=== PATIENT | female | born 1990 | race African-American/Black ===

== ENCOUNTER 2016-09-09 18:20 | Emergency (ER) | payer SELFPAY ==
[2016-09-09] MEDS ORDERED: IPRATROPIUM/ALBUTEROL 0.5-2.5 MG/3 ML AMPUL NEB ONE (19:23)
[2016-09-09] MEDS ORDERED: PREDNISONE 20 MG TABLET PO ONE (19:23)
--- NOTE | 2016-09-09 19:29 | ER Document Report ---
ED Medical Screen (RME) - General Chief Complaint: Cough Stated Complaint: NAUSEA/VOMITING/BODY ACHES Mode of Arrival: Ambulatory Information source: Patient Notes: 26 y/o F presents to ED c/o cough, congestion, and fever. States cough is productive and reports associated post-tussive emesis. I have greeted and performed a rapid initial assessment of this patient. A comprehensive ED assessment and evaluation of the patient, analysis of test results and completion of medical decision making process will be conducted by an additional ED providers. TRAVEL OUTSIDE OF THE [place] IN LAST 30 DAYS: No - Related Data Allergies/Adverse Reactions: hydroxychloroquine [From Plaquenil] Allergy (Verified 09/09/16 18:28) Past Medical History - Social History Chew tobacco use (# tins/day): No Frequency of alcohol use: None Drug Abuse: None - Past Medical History Cardiac Medical History: Denies: Hx Coronary Artery Disease, Hx Heart Attack, Hx Hypertension Pulmonary Medical History: Reports: Hx Asthma Denies: Hx Bronchitis, Hx COPD, Hx Pneumonia Neurological Medical History: Denies: Hx Cerebrovascular Accident, Hx Seizures Endocrine Medical History: Renal/ Medical History: Denies: Hx Peritoneal Dialysis Malignancy Medical History: GI Medical History: Musculoskeltal Medical History: Reports Hx Arthritis Psychiatric Medical History: Past Surgical History: Reports: Hx Tubal Ligation - Immunizations Immunizations up to date: Yes Hx Diphtheria, Pertussis, Tetanus Vaccination: Yes - 04/2015 Physical Exam - Vital signs Vitals: Temp Pulse Resp BP Pulse Ox 98.9 F 97 18 131/67 H 99 09/09/16 18:30 09/09/16 18:30 09/09/16 18:30 09/09/16 18:30 09/09/16 18:30 - General General appearance: Appears well, Alert In distress: None - Respiratory Respiratory status: No respiratory distress Breath sounds: Rhonchi - scaterred bilaterally, Wheezing - mild epiratory - Cardiovascular Rhythm: Regular Pulses: Normal: Radial Normal capillary refill: Yes Course - Vital Signs Vital signs: Temp Pulse Resp BP Pulse Ox 98.9 F 97 18 131/67 H 99 09/09/16 18:30 09/09/16 18:30 09/09/16 18:30 09/09/16 18:30 09/09/16 18:30
--- NOTE | 2016-09-09 23:28 | ER Document Report ---
ED General - General Mode of Arrival: Medic Information source: Patient TRAVEL OUTSIDE OF THE [place] IN LAST 30 DAYS: No - HPI Patient complains to provider of: Cough and Fever Onset: Other - 4 days ago Onset/Duration: Worse Associated symptoms: Other - see above <TRACY RUSS - Last Filed: 09/10/16 06:55> <ROQUE GAFFNEY - Last Filed: 09/10/16 07:42> - General Chief Complaint: Cough Stated Complaint: NAUSEA/VOMITING/BODY ACHES Notes: 26 year old female with history of Lupus presents to the ED with progressively worsening cough that has been present for the past 4 days. Patient states that she is not vomiting secondary to her coughing episodes, but is complaining of rhinorrhea, headache, fever, nausea, and diffuse abdominal pain. Patient denies throat pain. Patient states that she hasn't had anything to eat in the past 2 days. (TRACY RUSS) - Related Data Allergies/Adverse Reactions: hydroxychloroquine [From Plaquenil] Allergy (Verified 09/09/16 18:28) Past Medical History - General Information source: Patient Last Menstrual Period: now - Social History Smoking Status: Current Every Day Smoker Cigarette use (# per day): No Chew tobacco use (# tins/day): No Frequency of alcohol use: Rare Drug Abuse: None Family History: Reviewed & Not Pertinent Patient has suicidal ideation: No Patient has homicidal ideation: No - Past Medical History Cardiac Medical History: Denies: Hx Coronary Artery Disease, Hx Heart Attack, Hx Hypertension Pulmonary Medical History: Reports: Hx Asthma Denies: Hx Bronchitis, Hx COPD, Hx Pneumonia Neurological Medical History: Denies: Hx Cerebrovascular Accident, Hx Seizures Endocrine Medical History: Renal/ Medical History: Denies: Hx Peritoneal Dialysis Malignancy Medical History: GI Medical History: Musculoskeltal Medical History: Reports Hx Arthritis Psychiatric Medical History: Past Surgical History: Reports: Hx Tubal Ligation - Immunizations Immunizations up to date: Yes Hx Diphtheria, Pertussis, Tetanus Vaccination: Yes - 04/2015 Hx Pneumococcal Vaccination: 04/20/14 <TRACY RUSS - Last Filed: 09/10/16 06:55> <ROQUE GAFFNEY - Last Filed: 09/10/16 07:42> - Medical History Notes: Patient has a history of lupus (TRACY RUSS) Review of Systems - Review of Systems Constitutional: See HPI, Fever EENT: See HPI, Nose discharge. denies: Throat pain Cardiovascular: No symptoms reported Respiratory: No symptoms reported Gastrointestinal: See HPI, Abdominal pain - diffuse, Nausea Genitourinary: No symptoms reported Female Genitourinary: No symptoms reported Musculoskeletal: No symptoms reported Skin: No symptoms reported Hematologic/Lymphatic: No symptoms reported Neurological/Psychological: See HPI, Headaches -: Yes All other systems reviewed and negative <TRACY RUSS - Last Filed: 09/10/16 06:55> Physical Exam - General General appearance: Alert In distress: None - HEENT Head: Normocephalic, Atraumatic Eyes: Normal Extraocular movements intact: Yes Pupils: PERRL Nasal: Other - nasal congestion. No: Normal Mucous membranes: Dry - Respiratory Respiratory status: No respiratory distress Breath sounds: Normal - Cardiovascular Rhythm: Regular Heart sounds: Normal auscultation - Abdominal Inspection: Normal - Back Back: Normal - Extremities General upper extremity: Normal inspection, Normal ROM General lower extremity: Normal inspection, Normal ROM - Neurological Neuro grossly intact: Yes Cognition: Normal Orientation: AAOx4 Hollister Coma Scale Eye Opening: Spontaneous Bria Coma Scale Verbal: Oriented Hollister Coma Scale Motor: Obeys Commands Hollister Coma Scale Total: 15 Speech: Normal - Psychological Associated symptoms: Normal affect, Normal mood - Skin Skin Temperature: Warm Skin Moisture: Dry Skin Color: Normal <TRACY RUSS - Last Filed: 09/10/16 06:55> Course - Laboratory Result Diagrams: 09/09/16 23:43 09/09/16 23:43 <TRACY RUSS - Last Filed: 09/10/16 06:55> - Laboratory Result Diagrams: 09/09/16 23:43 09/09/16 23:43 - Diagnostic Test Radiology reviewed: Reports reviewed <ROQUE GAFFNEY - Last Filed: 09/10/16 07:42> - Re-evaluation Re-evalutation: 09/10/16 Patient with no evidence for bacterial infection. Taking by mouth. Feels better after fluids and medications. Stable for discharge home. Return if any worsening or concerning symptoms. No further abdominal pain at time of discharge. (ROQUE GAFFNEY) - Vital Signs Vital signs: Temp Pulse Resp BP Pulse Ox 97.9 F 64 16 124/69 100 09/10/16 06:12 09/10/16 06:12 09/10/16 06:12 09/10/16 06:12 09/10/16 06:12 (TRACY RUSS) (ROQUE GAFFNEY) - Laboratory Laboratory results interpreted by me: 09/09/16 09/09/16 09/10/16 23:43 23:43 02:50 WBC 12.0 H Hgb 15.9 H RDW 14.1 H Seg Neuts % (Manual) 98 H Lymphocytes % (Manual) 1 L Monocytes % (Manual) 1 L Abs Neuts (Manual) 11.8 H Abs Lymphs (Manual) 0.1 L Potassium 3.5 L Glucose 116 H Urine Protein 100 H Urine Ketones 80 H Urine Ascorbic Acid 40 H (ROQUE GAFFNEY) Discharge <TRACY RUSS - Last Filed: 09/10/16 06:55> <ROQUE GAFFNEY - Last Filed: 09/10/16 07:42> - Discharge Clinical Impression: Nausea & vomiting Qualifiers: Vomiting type: unspecified Vomiting Intractability: non-intractable Qualified Code(s): R11.2 - Nausea with vomiting, unspecified Upper respiratory infection Qualifiers: URI type: unspecified URI Qualified Code(s): J06.9 - Acute upper respiratory infection, unspecified Condition: Stable Disposition: HOME, SELF-CARE Instructions: Vomiting ([facility]), Upper Respiratory Illness ([facility]) Forms: Return to Work Referrals: DILMA CRUZ PA-C [Primary Care Provider] - Follow up as needed Scribe Attestation: 09/10/16 07:42 I personally performed the services described in the documentation, reviewed and edited the documentation which was dictated to the scribe in my presence, and it accurately records my words and actions. (ROQUE GAFFNEY) Scribe Documentation - Scribe Written by Scribe:: Sergey Gabriel, 09/10/2016 0034 acting as scribe for :: Cady <TRACY RUSS - Last Filed: 09/10/16 06:55>
[2016-09-09] MEDS ORDERED: NORMAL SALINE 1000 ML 1,000 ML IV ONE (23:29)
[2016-09-09] MEDS ORDERED: KETOROLAC TROMETHAMINE INJ/PF 30 MG/1 ML SDV IV ONE (23:30)
[2016-09-09] MEDS ORDERED: ONDANSETRON HCL INJ/PF 4 MG/2 ML SDV IV ONE (23:30)
[2016-09-10 00:19] LABS: ALANINE AMINOTRANSFERASE 20 U/L (9-52); ALBUMIN 4.8 g/dL (3.5-5.0); ALKALINE PHOSPHATASE 93 U/L (38-126); ANION GAP 15 (5-19); ASPARTATE AMINO TRANSFERASE 17 U/L (14-36); BILIRUBIN,TOTAL 0.8 mg/dL (0.2-1.3); BLOOD UREA NITROGEN 7 mg/dL (7-20); CARBON DIOXIDE 26 mmol/L (22-30); CHLORIDE 102 mmol/L (98-107); GLUCOSE 116 mg/dL (75-110); POTASSIUM 3.5 mmol/L (3.6-5.0); SODIUM 142.6 mmol/L (137-145); TOTAL PROTEIN 7.8 g/dL (6.3-8.2)
[2016-09-10 00:28] LABS: HEMOGLOBIN 15.9 g/dL (12.0-15.5); HGB HCT DIFFERENCE 0.7; MEAN CORPUSCULAR HEMOGLOBIN 30.9 pg (27.0-33.4); MEAN CORPUSCULAR HGB CONC 33.8 g/dL (32.0-36.0); MEAN CORPUSCULAR VOLUME 92 fl (80-97); RED BLOOD COUNT 5.13 10^6/uL (3.72-5.28); RED CELL DISTRIBUTION WIDTH 14.1 % (11.5-14.0)
[2016-09-10 00:31] LABS: BASOPHILS % (MANUAL) 0 % (0-2); EOSINOPHILS % (MANUAL) 0 % (0-6); LYMPHOCYTES % (MANUAL) 1 % (13-45); TOTAL CELLS COUNTED 100
[2016-09-10 00:32] LABS: TOXIC GRANULATION SLIGHT
[2016-09-10 00:33] LABS: ANISOCYTOSIS SLIGHT; SCHISTOCYTES SLIGHT
[2016-09-10 03:12] LABS: APPEARANCE,URINE SLIGHTLY-CLOUDY; BILIRUBIN,URINE NEGATIVE (NEGATIVE); GLUCOSE, URINE NEGATIVE (NEGATIVE); KETONES,URINE 80 mg/dL (NEGATIVE); LEUKOCYTE ESTERASE,URINE NEGATIVE (NEGATIVE); NITRITE,URINE NEGATIVE (NEGATIVE); PROTEIN,URINE 100 mg/dL (NEGATIVE); URINE SPECIFIC GRAVITY 1.028; UROBILINOGEN,URINE NEGATIVE mg/dL (<2.0)
[2016-09-10] MEDS ORDERED: RINGERS SOLUTION,LACTATED 1,000 ML IV ONE (04:00)
[2016-09-10] MEDS ORDERED: ONDANSETRON ODT 4 MG TAB (6 TAB/DSPK) PO PRN (05:45)
[2016-09-10 06:14] VITALS: BP 124/69
== END 2016-09-10 06:14 | disposition home or self-care (01) ==
LOC: ER 18:20
DX: J06.9 Acute upper respiratory infection, unspecified (principal); R11.2 Nausea with vomiting, unspecified; R05 Cough; R52 Pain, unspecified; R51 Headache; J34.89 Other specified disorders of nose and nasal sinuses; R10.9 Unspecified abdominal pain; F17.210 Nicotine dependence, cigarettes, uncomplicated
CPT/HCPCS: 94640; 99284; 96361; 96374; 96375; 36415; 83690; 84703; 85025; 80053; 81001; 87804; 71020; J1885; J7512; J2405; J7030; J7120; J7620

== ENCOUNTER 2016-12-10 11:22 | Emergency (ER) | payer SELFPAY ==
--- NOTE | 2016-12-10 13:11 | ER Document Report ---
HPI - HPI Patient complains to provider of: dental pain Onset: Other - 8 days Onset/Duration: Persistent Quality of pain: Achy Severity: Severe Pain Level: 5 Context: Patient presents to the emergency department with complaints of right upper dental pain for the past 8 days. Patient reports she has been taking some penicillin that she received from her dentist a few months ago. Patient reports she has also been taking her tramadol that she has for lupus but is not touching the pain. She denies fever vomiting diarrhea. Reports it hurts when she smokes. Patient reports she has a follow-up appointment with her dentist next Friday to have the tooth pulled. Associated Symptoms: None Exacerbated by: Other - smoking Relieved by: Denies Similar symptoms previously: Yes Recently seen / treated by doctor: No - REPRODUCTIVE LMP: 12/05/16 Reproductive: DENIES: : - DERM Skin Color: Normal Past Medical History - General Information source: Patient Last Menstrual Period: 12/05/16 - Social History Smoking Status: Current Every Day Smoker Cigarette use (# per day): Yes Frequency of alcohol use: None Drug Abuse: None Family History: Reviewed & Not Pertinent Patient has suicidal ideation: No Patient has homicidal ideation: No - Past Medical History Cardiac Medical History: Denies: Hx Coronary Artery Disease, Hx Heart Attack, Hx Hypertension Pulmonary Medical History: Reports: Hx Asthma Denies: Hx Bronchitis, Hx COPD, Hx Pneumonia Neurological Medical History: Denies: Hx Cerebrovascular Accident, Hx Seizures Endocrine Medical History: Renal/ Medical History: Denies: Hx Peritoneal Dialysis Malignancy Medical History: GI Medical History: Musculoskeltal Medical History: Reports Hx Arthritis Psychiatric Medical History: Past Surgical History: Reports: Hx Dilation and Curettage, Hx Tubal Ligation - Immunizations Immunizations up to date: Yes Hx Diphtheria, Pertussis, Tetanus Vaccination: Yes - 04/2015 Hx Pneumococcal Vaccination: 04/20/14 Vertical Provider Document - CONSTITUTIONAL Agree With Documented VS: Yes Exam Limitations: No Limitations General Appearance: WD/WN, No Apparent Distress - nontoxic looking - INFECTION CONTROL TRAVEL OUTSIDE OF THE [place] IN LAST 30 DAYS: No - HEENT HEENT: Atraumatic, Normocephalic. negative: Pharyngeal Erythema Mouth Diagram: 1 - Chipped tooth noted no erythema no swelling no discharge no pustule no induration no ludwigs, opens mouth wide - NECK Neck: Normal Inspection, Supple. negative: Lymphadenopathy-Left, Lymphadenopathy-Right - RESPIRATORY Respiratory: No Respiratory Distress O2 Sat by Pulse Oximetry: 97 - CARDIOVASCULAR Cardiovascular: Regular Rate - MUSCULOSKELETAL/EXTREMETIES Musculoskeletal/Extremeties: NAZ MARTÍNEZ - NEURO Level of Consciousness: Awake, Alert, Appropriate - DERM Integumentary: Warm, Dry Course - Re-evaluation Re-evalutation: 12/10/16 13:10 Patient was brought back to her room after almost a 2 hour wait because she was sleeping in waiting room and did not hear her name called. 12/10/16 13:47 Patient was given a Tessalon Perle p.o. I had intended for the Tessalon Perles to be given for her dental pain with a hole poked in it to bite down but patient was given it and swallowed. Will prescribe patient small amount of narcotic to help get her through until her appointment next week. Patient currently reports she has enough penicillin. - Vital Signs Vital signs: Temp Pulse Resp BP Pulse Ox 98.5 F 80 18 125/82 97 12/10/16 11:43 12/10/16 11:43 12/10/16 11:43 12/10/16 11:43 12/10/16 11:43 Discharge - Discharge Clinical Impression: Pain, dental Condition: Stable Disposition: HOME, SELF-CARE Instructions: Oral Narcotic Medication ([facility]), Toothache ([facility]) Additional Instructions: *You have been evaluated for dental pain *Take medications as prescribed *Follow up with your dentist as scheduled Friday *Return to ED for worsening condition, changes, needs Prescriptions: Hydrocodone/Acetaminophen [Hyrum 5-325 Tablet] 1 each PO BID #10 tablet Referrals: DAREK WELCH MD [Primary Care Provider] - Follow up in 3-5 days
[2016-12-10] MEDS ORDERED: BENZONATATE 100 MG CAPSULE PO ONE (13:16)
[2016-12-10 13:51] VITALS: BP 110/72
== END 2016-12-10 13:43 | disposition home or self-care (01) ==
LOC: ER 11:22
DX: K08.89 Other specified disorders of teeth and supporting structures (principal); F17.210 Nicotine dependence, cigarettes, uncomplicated; J45.909 Unspecified asthma, uncomplicated
CPT/HCPCS: 99282

== ENCOUNTER 2017-01-11 14:07 | Emergency (ER) | payer MEDICAID ==
--- NOTE | 2017-01-11 15:48 | ER Document Report ---
ED Oral Problem - General Chief Complaint: Toothache Stated Complaint: TOOTH PAIN Time Seen by Provider: 01/11/17 14:55 Mode of Arrival: Ambulatory Information source: Patient Notes: 6-year-old female presents to the emergency room with right upper dental pain TRAVEL OUTSIDE OF THE [place] IN LAST 30 DAYS: No - HPI Patient complains to provider of: Toothache Onset: Last week Onset: Gradual Quality of pain: Dull Severity: Moderate Pain Level: 2 Context: Recent antibiotic use Associated symptoms: denies: Decreased appetite, Earache, Fever Worsened by: Cold Similar symptoms previously: Yes Recently seen / treated by doctor/dentist: No - Related Data Allergies/Adverse Reactions: No Known Allergies Allergy (Verified 01/11/17 14:12) Past Medical History - General Information source: Patient - Social History Smoking Status: Current Every Day Smoker Cigarette use (# per day): No Chew tobacco use (# tins/day): No Frequency of alcohol use: Social Drug Abuse: None Lives with: Family Family History: Reviewed & Not Pertinent Patient has suicidal ideation: No Patient has homicidal ideation: No - Past Medical History Cardiac Medical History: Denies: Hx Coronary Artery Disease, Hx Heart Attack, Hx Hypertension Pulmonary Medical History: Reports: Hx Asthma Denies: Hx Bronchitis, Hx COPD, Hx Pneumonia Neurological Medical History: Denies: Hx Cerebrovascular Accident, Hx Seizures Endocrine Medical History: Renal/ Medical History: Denies: Hx Peritoneal Dialysis Malignancy Medical History: GI Medical History: Musculoskeltal Medical History: Reports Hx Arthritis Psychiatric Medical History: Past Surgical History: Reports: Hx Dilation and Curettage, Hx Gynecologic Surgery - d and c, Hx Tubal Ligation - Immunizations Immunizations up to date: Yes Hx Diphtheria, Pertussis, Tetanus Vaccination: Yes - 04/2015 Hx Pneumococcal Vaccination: 04/20/14 Review of Systems - Review of Systems Constitutional: denies: Chills, Fever EENT: See HPI Cardiovascular: No symptoms reported Respiratory: No symptoms reported Gastrointestinal: No symptoms reported Genitourinary: No symptoms reported Physical Exam - Vital signs Vitals: Temp Pulse Resp BP Pulse Ox 98.4 F 103 H 16 125/80 98 01/11/17 14:12 01/11/17 14:12 01/11/17 14:12 01/11/17 14:12 01/11/17 14:12 - HEENT Head: Normocephalic, Atraumatic Eyes: Normal Nasal: Normal Mouth/Lips: Normal Teeth diagram: 1 - Tenderness, dental caries Pharynx: Normal Neck: Normal. No: Anterior cervical chain, Posterior cervical chain Course - Vital Signs Vital signs: Temp Pulse Resp BP Pulse Ox 98.4 F 103 H 16 125/80 98 01/11/17 14:12 01/11/17 14:12 01/11/17 14:12 01/11/17 14:12 01/11/17 14:12 Discharge - Discharge Clinical Impression: Dental caries Condition: Stable Disposition: HOME, SELF-CARE Instructions: Oral Narcotic Medication ([facility]), Penicillin V K ([facility]), Toothache ( [facility]) Additional Instructions: The medicines as prescribed. Follow-up with a dentist: See the dental follow-up clinics. The list below includes dental clinics at reduced rate. Each of these clinics involve some travel. [address] [phone] [email or web address] [address] [phone] extension [address] [address] [facility]/[address] [place] [address] Note: The [facility] will have a free dental clinic as of January 18. Prescriptions: Oxycodone HCl/Acetaminophen [Percocet 5-325 mg Tablet] 1 tab PO ASDIR PRN #25 tab PRN Reason: Penicillin V Potassium [Penicillin Vk 500 mg Tablet] 500 mg PO QID #28 tablet Referrals: DILMA CRUZ PA-C [Primary Care Provider] - Follow up as needed [facility] [Provider Group] - Follow up as needed ([facility] will be opening up January 18)
[2017-01-11 16:36] VITALS: BP 122/78
== END 2017-01-11 16:30 | disposition home or self-care (01) ==
LOC: ER 14:07
DX: K02.9 Dental caries, unspecified (principal); K08.89 Other specified disorders of teeth and supporting structures; R63.0 Anorexia; H92.09 Otalgia, unspecified ear; R50.9 Fever, unspecified; F17.200 Nicotine dependence, unspecified, uncomplicated
CPT/HCPCS: 99282

== ENCOUNTER 2017-01-30 15:45 | Emergency (ER) | payer MEDICAID ==
[2017-01-30] MEDS ORDERED: ONDANSETRON 4 MG TAB.RAPDIS PO ONE (15:59)
[2017-01-30] MEDS ORDERED: PROMETHAZINE HCL 25 MG TABLET PO ONE (15:59)
--- NOTE | 2017-01-30 16:00 | ER Document Report ---
ED Medical Screen (RME) - General Chief Complaint: Abdominal Pain Stated Complaint: ABDOMINAL PAIN Time Seen by Provider: 01/30/17 15:59 Notes: Patient says that she is having severe pain in the epigastric region of the abdomen which started today while she was at work around noon. Pain is constant and severe. She has not had any diarrhea, but has been nauseated and did vomit once today just prior to arrival here. Patient says she has had similar pains to this when she is about ready to start her menstrual cycle. Her last cycle was January 09. She had her tubes tied. No other abdominal surgeries. Not on any regular prescription medications for any medical problems. TRAVEL OUTSIDE OF THE [place] IN LAST 30 DAYS: No - Related Data Allergies/Adverse Reactions: No Known Allergies Allergy (Verified 01/11/17 14:12) Past Medical History - Social History Chew tobacco use (# tins/day): No Frequency of alcohol use: None Drug Abuse: None - Past Medical History Cardiac Medical History: Denies: Hx Coronary Artery Disease, Hx Heart Attack, Hx Hypertension Pulmonary Medical History: Reports: Hx Asthma Denies: Hx Bronchitis, Hx COPD, Hx Pneumonia Neurological Medical History: Denies: Hx Cerebrovascular Accident, Hx Seizures Endocrine Medical History: Renal/ Medical History: Denies: Hx Peritoneal Dialysis Malignancy Medical History: GI Medical History: Musculoskeltal Medical History: Reports Hx Arthritis Psychiatric Medical History: Past Surgical History: Reports: Hx Dilation and Curettage, Hx Gynecologic Surgery - d and c, Hx Tubal Ligation - Immunizations Immunizations up to date: Yes Hx Diphtheria, Pertussis, Tetanus Vaccination: Yes - 04/2015 Physical Exam - Vital signs Vitals: Temp Pulse Resp BP Pulse Ox 97.8 F 79 20 133/78 H 100 01/30/17 15:50 01/30/17 15:50 01/30/17 15:50 01/30/17 15:50 01/30/17 15:50 Course - Vital Signs Vital signs: Temp Pulse Resp BP Pulse Ox 97.8 F 79 20 133/78 H 100 01/30/17 15:50 01/30/17 15:50 01/30/17 15:50 01/30/17 15:50 01/30/17 15:50
[2017-01-30 16:35] LABS: ABSOLUTE BASOPHILS # (AUTO) 0.1 10^3/uL (0.0-0.2); ABSOLUTE EOSINOPHILS # (AUTO) 0.2 10^3/uL (0.0-0.6); ABSOLUTE LYMPHOCYTES (AUTO) 2.4 10^3/uL (0.5-4.7); ABSOLUTE MONOCYTES (AUTO) 0.3 10^3/uL (0.1-1.4); ABSOLUTE NEUT (AUTO) 2.4 10^3/uL (1.7-8.2); BASOPHILS % (AUTO) 1.4 % (0-2); EOSINOPHILS % (AUTO) 2.9 % (0-6); HEMOGLOBIN 14.2 g/dL (12.0-15.5); HGB HCT DIFFERENCE -0.4; LYMPHOCYTES % (AUTO) 44.6 % (13-45); MEAN CORPUSCULAR HEMOGLOBIN 31.2 pg (27.0-33.4); MEAN CORPUSCULAR HGB CONC 33.1 g/dL (32.0-36.0); MEAN CORPUSCULAR VOLUME 94 fl (80-97); MONOCYTES % (AUTO) 6.4 % (3-13); RED BLOOD COUNT 4.56 10^6/uL (3.72-5.28); RED CELL DISTRIBUTION WIDTH 13.2 % (11.5-14.0); SEGMENTED NEUTROPHILS % (AUTO) 44.7 % (42-78); WHITE BLOOD COUNT 5.4 10^3/uL (4.0-10.5)
[2017-01-30 16:55] LABS: ALANINE AMINOTRANSFERASE 27 U/L (9-52); ALBUMIN 4.4 g/dL (3.5-5.0); ALKALINE PHOSPHATASE 77 U/L (38-126); ANION GAP 11 (5-19); ASPARTATE AMINO TRANSFERASE 17 U/L (14-36); BILIRUBIN,DIRECT 0.3 mg/dL (0.0-0.4); BILIRUBIN,TOTAL 0.4 mg/dL (0.2-1.3); BLOOD UREA NITROGEN 13 mg/dL (7-20); CALCIUM 9.5 mg/dL (8.4-10.2); CARBON DIOXIDE 28 mmol/L (22-30); CHLORIDE 104 mmol/L (98-107); CREATININE RESULT 0.61 mg/dL (0.52-1.25); GLUCOSE 84 mg/dL (75-110); LIPASE 218.8 U/L (23-300); POTASSIUM 3.6 mmol/L (3.6-5.0); SODIUM 142.8 mmol/L (137-145); TOTAL PROTEIN 7.6 g/dL (6.3-8.2)
--- NOTE | 2017-01-30 17:18 | ER Document Report ---
ED General - General Chief Complaint: Abdominal Pain Stated Complaint: ABDOMINAL PAIN Time Seen by Provider: 01/30/17 15:59 Mode of Arrival: Ambulatory Information source: Patient Notes: 26-year-old female presents with complaints of umbilical pain. Patient notes she has these episodes approximately 1 week prior to her menses starting, patient notes it is 1 week prior to her menses starting. Patient denies any fevers or chills admits to burping and passing gas TRAVEL OUTSIDE OF THE [place] IN LAST 30 DAYS: No - HPI Onset: Just prior to arrival Onset/Duration: Sudden Quality of pain: Cramping Severity: Mild Pain Level: 1 Associated symptoms: Other Exacerbated by: Denies Relieved by: Denies Similar symptoms previously: Yes Recently seen / treated by doctor: Yes - Related Data Allergies/Adverse Reactions: No Known Allergies Allergy (Verified 01/11/17 14:12) Past Medical History - Social History Smoking Status: Current Every Day Smoker Cigarette use (# per day): Yes Chew tobacco use (# tins/day): No Smoking Education Provided: No Frequency of alcohol use: None Drug Abuse: None Family History: Reviewed & Not Pertinent Patient has suicidal ideation: No Patient has homicidal ideation: No - Past Medical History Cardiac Medical History: Denies: Hx Coronary Artery Disease, Hx Heart Attack, Hx Hypertension Pulmonary Medical History: Reports: Hx Asthma Denies: Hx Bronchitis, Hx COPD, Hx Pneumonia Neurological Medical History: Denies: Hx Cerebrovascular Accident, Hx Seizures Endocrine Medical History: Renal/ Medical History: Denies: Hx Peritoneal Dialysis Malignancy Medical History: GI Medical History: Musculoskeltal Medical History: Reports Hx Arthritis Psychiatric Medical History: Past Surgical History: Reports: Hx Dilation and Curettage, Hx Gynecologic Surgery - d and c, Hx Tubal Ligation - Immunizations Immunizations up to date: Yes Hx Diphtheria, Pertussis, Tetanus Vaccination: Yes - 04/2015 Hx Pneumococcal Vaccination: 04/20/14 Review of Systems - Review of Systems Notes: REVIEW OF SYSTEMS: CONSTITUTIONAL : Denies fever, chills, or sweats. Denies recent illness. EENT: Denies eye, ear, throat, or mouth pain or symptoms. Denies nasal or sinus congestion or discharge. Denies throat, tongue, or mouth swelling or difficulty swallowing. CARDIOVASCULAR: Denies chest pain. Denies palpitations or racing or irregular heart beat. Denies ankle edema. RESPIRATORY: Denies cough, cold, or chest congestion. Denies shortness of breath, difficulty breathing, or wheezing. GASTROINTESTINAL: Admits to abdominal cramping GENITOURINARY: Denies difficulty urinating, painful urination, burning, frequency, blood in urine, or discharge. FEMALE GENITOURINARY: Denies vaginal bleeding, heavy or abnormal periods, irregular periods. Denies vaginal discharge or odor. MUSCULOSKELETAL: Denies back or neck pain or stiffness. Denies joint pain or swelling. SKIN: Denies rash, lesions or sores. HEMATOLOGIC : Denies easy bruising or bleeding. LYMPHATIC: Denies swollen, enlarged glands. NEUROLOGICAL: Denies confusion or altered mental status. Denies passing out or loss of consciousness. Denies dizziness or lightheadedness. Denies headache. Denies weakness or paralysis or loss of use of either side. Denies problems with gait or speech. Denies sensory loss, numbness, or tingling. Denies seizures. PSYCHIATRIC: Denies anxiety or stress. Denies depression, suicidal ideation, or homicidal ideation. ALL OTHER SYSTEMS REVIEWED AND NEGATIVE. PHYSICAL EXAMINATION: GENERAL: Well-appearing, well-nourished and in no acute distress. HEAD: Atraumatic, normocephalic. EYES: Pupils equal round and reactive to light, extraocular movements intact, conjunctiva are normal. ENT: Nares patent, oropharynx clear without exudates. Moist mucous membranes. NECK: Normal range of motion, supple without lymphadenopathy LUNGS: Breath sounds clear to auscultation bilaterally and equal. No wheezes rales or rhonchi. HEART: Regular rate and rhythm without murmurs ABDOMEN: Soft, nontender, nondistended abdomen. No guarding, no rebound. No masses appreciated. Female : deferred Musculoskeletal: Normal range of motion, no pitting or edema. No cyanosis. NEUROLOGICAL: Cranial nerves grossly intact. Normal speech, normal gait. Normal sensory, motor exams PSYCH: Normal mood, normal affect. SKIN: Warm, Dry, normal turgor, no rashes or lesions noted. Dictation was performed using [employer] recognition software Physical Exam - Vital signs Vitals: Temp Pulse Resp BP Pulse Ox 97.8 F 79 20 133/78 H 100 01/30/17 15:50 01/30/17 15:50 01/30/17 15:50 01/30/17 15:50 01/30/17 15:50 Course - Re-evaluation Re-evalutation: 01/30/17 19:40 Patient's physical examination labwork notes no significant abnormality, she overall looks quite well is in no distress, she was given some Bentyl and Motrin and notes her pain is completely resolved after passing gas. I will discharge at this time with understand that if symptoms do worsen if there is fevers or migration of the pain that she must return immediately After performing a Medical Screening Examination, I estimate there is LOW risk for ACUTE APPENDICITIS, BOWEL OBSTRUCTION, ACUTE CHOLECYSTITIS, PERFORATED DIVERTICULITIS, INCARCERATED HERNIA, PANCREATITIS, PELVIC INFLAMMATORY DISEASE, PERFORATED ULCER, ECTOPIC , or TUBO-OVARIAN ABSCESS, thus I consider the discharge disposition reasonable. Also, there is no evidence or peritonitis , sepsis, or toxicity. I have reevaluated this patient multiple times and no significant life threatening changes are noted. The patient and I have discussed the diagnosis and risks, and we agree with discharging home with close follow-up with the understanding that symptoms and presentations can change. We also discussed returning to the Emergency Department immediately if new or worsening symptoms occur. We have discussed the symptoms which are most concerning (e.g., bloody stool, fever, changing or worsening pain, vomiting) that necessitate immediate return. - Vital Signs Vital signs: Temp Pulse Resp BP Pulse Ox 97.8 F 64 16 112/70 100 01/30/17 17:42 01/30/17 17:42 01/30/17 17:42 01/30/17 17:42 01/30/17 17:42 - Laboratory Result Diagrams: 01/30/17 16:10 01/30/17 16:10 - Diagnostic Test Radiology reviewed: Image reviewed Discharge - Discharge Clinical Impression: Abdominal pain Qualifiers: Abdominal location: epigastric Qualified Code(s): R10.13 - Epigastric pain Condition: Stable Disposition: HOME, SELF-CARE Instructions: Abdominal Pain ([facility]) Additional Instructions: Follow up with your physician tomorrow for further care or return to the ED IMMEDIATELY if symptoms worsen or new concerns occur. If you cannot afford to follow up with your primary care physician a list of low cost clinics have been provided at the end of your discharge papers as well.
[2017-01-30] MEDS ORDERED: IBUPROFEN 600 MG TABLET PO ONE (17:20)
[2017-01-30] MEDS ORDERED: DICYCLOMINE HCL INJ 20 MG/2 ML AMPULE IM ONE (17:21)
[2017-01-30 17:48] VITALS: BP 112/70
== END 2017-01-30 17:42 | disposition home or self-care (01) ==
LOC: ER 15:45
DX: R10.13 Epigastric pain (principal); R10.33 Periumbilical pain; F17.210 Nicotine dependence, cigarettes, uncomplicated
CPT/HCPCS: 99284; 96372; 36415; 83690; 84703; 85025; 80053; J0500; S0119; J3490 ×2

== ENCOUNTER 2017-02-08 11:12 | Emergency (ER) | payer MEDICAID ==
[2017-02-08 11:17] VITALS: BP 124/80
--- NOTE | 2017-02-08 11:39 | ER Document Report ---
ED Oral Problem - General Chief Complaint: Toothache Stated Complaint: TOOTHACHE Time Seen by Provider: 02/08/17 11:30 Notes: 26 yo female c/o pain to right upper tooth. reports tooth broke last night causing increased pain. pt was seen 1 month ago in ED for same tooth pain, and the month prior for same tooth pain. pt reports she has a dental appointment this week. She state that she has been taking Tramadol without relief. TRAVEL OUTSIDE OF THE [place] IN LAST 30 DAYS: No - HPI Patient complains to provider of: Toothache Onset: Yesterday Quality of pain: Achy Context: Fractured tooth Associated symptoms: Headache Relieved by: Nothing Similar symptoms previously: Yes Recently seen / treated by doctor/dentist: Yes - ED - Related Data Allergies/Adverse Reactions: No Known Allergies Allergy (Verified 01/11/17 14:12) Past Medical History - General Information source: Patient - Social History Smoking Status: Current Every Day Smoker Frequency of alcohol use: None Drug Abuse: None Lives with: Family Family History: Reviewed & Not Pertinent - Past Medical History Cardiac Medical History: Denies: Hx Coronary Artery Disease, Hx Heart Attack, Hx Hypertension Pulmonary Medical History: Reports: Hx Asthma Denies: Hx Bronchitis, Hx COPD, Hx Pneumonia Neurological Medical History: Denies: Hx Cerebrovascular Accident, Hx Seizures Endocrine Medical History: Renal/ Medical History: Denies: Hx Peritoneal Dialysis Malignancy Medical History: GI Medical History: Musculoskeltal Medical History: Reports Hx Arthritis Psychiatric Medical History: Past Surgical History: Reports: Hx Dilation and Curettage, Hx Gynecologic Surgery - d and c, Hx Tubal Ligation - Immunizations Immunizations up to date: Yes Hx Diphtheria, Pertussis, Tetanus Vaccination: Yes - 04/2015 Hx Pneumococcal Vaccination: 04/20/14 Review of Systems - Review of Systems Constitutional: No symptoms reported EENT: See HPI Cardiovascular: No symptoms reported Respiratory: No symptoms reported Gastrointestinal: No symptoms reported Genitourinary: No symptoms reported Female Genitourinary: No symptoms reported Musculoskeletal: No symptoms reported Skin: No symptoms reported Hematologic/Lymphatic: No symptoms reported Neurological/Psychological: No symptoms reported Physical Exam - Vital signs Vitals: Temp Pulse Resp BP Pulse Ox 98.1 F 83 16 124/80 100 02/08/17 11:14 02/08/17 11:14 02/08/17 11:14 02/08/17 11:14 02/08/17 11:14 Interpretation: Normal - General General appearance: Appears well, Alert - HEENT Head: Normocephalic, Atraumatic Eyes: Normal Pupils: PERRL Tympanic membrane: Normal Teeth diagram: 1 - fractured tooth. + decay. no gingival abscess appreciated Pharynx: Normal Neck: Normal - Respiratory Respiratory status: No respiratory distress Chest status: Nontender Breath sounds: Normal Chest palpation: Normal - Cardiovascular Rhythm: Regular Heart sounds: Normal auscultation Murmur: No - Abdominal Inspection: Normal Distension: No distension Bowel sounds: Normal Tenderness: Nontender Organomegaly: No organomegaly - Back Back: Normal, Nontender - Extremities General upper extremity: Normal inspection, Nontender, Normal color, Normal ROM , Normal temperature General lower extremity: Normal inspection, Nontender, Normal color, Normal ROM , Normal temperature, Normal weight bearing. No: Jean's sign - Neurological Neuro grossly intact: Yes Cognition: Normal Orientation: AAOx4 [place] Coma Scale Eye Opening: Spontaneous [place] Coma Scale Verbal: Oriented [place] Coma Scale Motor: Obeys Commands [place] Coma Scale Total: 15 Speech: Normal Motor strength normal: LUE, RUE, LLE, RLE Sensory: Normal - Psychological Associated symptoms: Normal affect, Normal mood - Skin Skin Temperature: Warm Skin Moisture: Dry Skin Color: Normal Course - Vital Signs Vital signs: Temp Pulse Resp BP Pulse Ox 98.1 F 83 16 124/80 100 02/08/17 11:14 02/08/17 11:14 02/08/17 11:14 02/08/17 11:14 02/08/17 11:14 Discharge - Discharge Clinical Impression: Pain, dental Condition: Stable Disposition: HOME, SELF-CARE Instructions: Penicillin V K ([facility]), Toothache ([facility]), Ibuprofen (General) ([facility]) , Ultram ([facility]), Tessalon Perles ([facility]) Additional Instructions: Take medications as prescribed You may awad the Tessalon Perle and squeeze the liquid on painful tooth Follow up with dental as schedule Prescriptions: Benzonatate [Tessalon Perles 100 mg Capsule] 200 mg PO Q8HP PRN #40 capsule PRN Reason: Ibuprofen [Motrin 800 Mg Tablet] 800 mg PO Q6H #20 tablet Tramadol HCl [Ultram 50 mg Tablet] 50 mg PO Q6 #20 tablet
[2017-02-08] MEDS ORDERED: BENZONATATE 100 MG CAPSULE PO ONE (11:47)
== END 2017-02-08 11:59 | disposition home or self-care (01) ==
LOC: ER 11:12
DX: K02.9 Dental caries, unspecified (principal); K08.89 Other specified disorders of teeth and supporting structures; R51 Headache; F17.200 Nicotine dependence, unspecified, uncomplicated; J45.909 Unspecified asthma, uncomplicated
CPT/HCPCS: 99282; J3490

== ENCOUNTER 2017-02-27 15:43 | Emergency (ER) | payer MEDICAID ==
[2017-02-27] MEDS ORDERED: IBUPROFEN 600 MG TABLET PO ONE (16:47)
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
[2017-02-27] MEDS ORDERED: HYDROCODONE/ACETAMINOPHEN 5-325 MG 6 TAB/DSPK PO PRN (18:33)
[2017-02-27 18:51] VITALS: BP 123/63
== END 2017-02-27 18:52 | disposition home or self-care (01) ==
LOC: ER 15:43
DX: S40.011A Contusion of right shoulder, initial encounter (principal); S20.20XA Contusion of thorax, unspecified, initial encounter; Y04.8XXA Assault by other bodily force, initial encounter; Y04.2XXA Assault by strike against or bumped into by another person, initial encounter; F17.200 Nicotine dependence, unspecified, uncomplicated; J45.909 Unspecified asthma, uncomplicated; M54.89 Other dorsalgia
CPT/HCPCS: 99284; 71111; J3490

== ENCOUNTER 2017-04-03 21:05 | Emergency (ER) | payer MEDICAID ==
[2017-04-04] MEDS ORDERED: ALBUTEROL SULFATE 0.083% NEB 2.5 MG/3 ML AMPUL NEB ONE (01:16)
[2017-04-04] MEDS ORDERED: PREDNISONE 20 MG TABLET PO ONE (01:17)
--- NOTE | 2017-04-04 01:20 | ER Document Report ---
ED General - General Chief Complaint: Cough Stated Complaint: CHEST PAIN AND COUGH Time Seen by Provider: 04/04/17 01:12 Notes: Patient is a 26-year-old female presents with complaint of fever, cough, body aches. Patient says the symptoms have been ongoing for approximately a week. She is a smoker. She does smoke every day. She says that she has been have all coughing. She is initially was productive of sputum but now she feels as if she cannot get sputum out. She says that she has had a fever of 101 at home. She has had some headache. She denies any vomiting. No diarrhea. No other complaints at this time. TRAVEL OUTSIDE OF THE [place] IN LAST 30 DAYS: No - Related Data Allergies/Adverse Reactions: No Known Allergies Allergy (Verified 02/27/17 15:53) Past Medical History - Social History Smoking Status: Current Every Day Smoker Frequency of alcohol use: None Drug Abuse: None Family History: Reviewed & Not Pertinent Patient has suicidal ideation: No Patient has homicidal ideation: No - Past Medical History Cardiac Medical History: Denies: Hx Heart Attack, Hx Hypertension Pulmonary Medical History: Reports: Hx Asthma Denies: Hx Bronchitis, Hx COPD, Hx Pneumonia Neurological Medical History: Denies: Hx Seizures Endocrine Medical History: Renal/ Medical History: Reports: Hx Ovarian Cysts. Denies: Hx Peritoneal Dialysis Malignancy Medical History: GI Medical History: Reports: Hx Ulcerative Colitis Musculoskeltal Medical History: Reports Hx Arthritis Psychiatric Medical History: Past Surgical History: Reports: Hx Dilation and Curettage, Hx Gynecologic Surgery - d and c, Hx Tubal Ligation - Immunizations Immunizations up to date: Yes Hx Diphtheria, Pertussis, Tetanus Vaccination: Yes - 04/2015 Hx Pneumococcal Vaccination: 04/20/14 Review of Systems - Review of Systems Notes: My Normal Review Basic REVIEW OF SYSTEMS: CONSTITUTIONAL : Fever EENT: Denies eye, ear, throat, or mouth pain or symptoms. Denies nasal or sinus congestion. CARDIOVASCULAR: Denies chest pain. RESPIRATORY: Recurrent cough. Wheezing GASTROINTESTINAL: Denies abdominal pain. Denies nausea, vomiting, or diarrhea. Denies constipation. Last BM: MUSCULOSKELETAL: Denies neck or back pain or joint pain or swelling. SKIN: Denies rash or skin lesions. NEUROLOGICAL: Denies altered mental status or loss of consciousness. Intermittent headache. Denies weakness or paralysis or loss of use of either side. Denies problems with gait or speech. Denies sensory or motor loss. ALL OTHER SYSTEMS REVIEWED AND NEGATIVE. Physical Exam - Vital signs Vitals: Temp Pulse Resp BP Pulse Ox 99.2 F 99 16 107/63 95 04/03/17 21:09 04/03/17 21:09 04/03/17 21:09 04/03/17 21:09 04/03/17 21:09 - Notes Notes: General Appearance: Well nourished, alert, cooperative, no acute distress, mild obvious discomfort. Vitals: reviewed, See vital signs table. Head: no swelling or tenderness to the head Eyes: PERRL, EOMI, Conjuctiva clear Mouth: No decreasd moisture Throat: No tonsillar inflammation, No airway obstruction, No lymphadenopathy Neck: Supple, no neck tenderness, Lungs: Scattered wheezing, No rales, scattered rhonci, No accessory muscle use, good air exchange bilaterally. Heart: Normal rate, Regular rythm, No murmur, no rub Abdomen: Normal BS, soft, No rigidity, No abdominal tenderness, No guarding, no rebound, no abdominal masses, no organomegaly Extremities: strength 5/5 in all extremities, good pulses in all extremities, no swelling or tenderness in the extremities, no edema. Skin: warm, dry, appropriate color, no rash Neuro: speech clear, oriented x 3, normal affect, responds appropriately to questions. Course - Re-evaluation Re-evalutation: 04/04/17 06:33 Patient will be discharged home on prednisone and albuterol inhaler. Chest x- ray is negative for pneumonia. Suspect that she has a bronchitis. I talked her length about the importance of her quitting smoking and informed her that if she continues to smoke that her symptoms do not improve. I informed her that if she continues to feel like she is worsening or has recurrent fevers that she should return to the ER for reevaluation. Patient agrees with plan and will be discharged home. Dictation of this chart was performed using voice recognition software; therefore, there may be some unintended grammatical errors. - Vital Signs Vital signs: Temp Pulse Resp BP Pulse Ox 98.6 F 87 17 116/74 94 04/04/17 04:17 04/04/17 04:17 04/04/17 04:17 04/04/17 04:04/04/17 04:17 Discharge - Discharge Clinical Impression: Bronchitis Condition: Good Disposition: HOME, SELF-CARE Additional Instructions: BRONCHITIS: You have acute bronchitis. This disease is an infection or inflammation of the air passageways in your lungs. Symptoms usually include cough, low grade fever, shortness of breath, and wheezing. The cough usually persists for a couple of weeks. Most cases of bronchitis get better without antibiotics. We prescribe antibiotics when we believe bacteria are damaging your airways, or if there's high risk the bronchitis will worsen into pneumonia. Increase your fluid intake. A cool mist humidifier may make your lungs more comfortable. An expectorant (cough medicine that loosens phlegm) can help. If you smoke, STOP!!! Recovery from bronchitis can be somewhat slow, but you should see improvement within a day or two. Repeated episodes of bronchitis may result in lung damage -- for example, chronic bronchitis, recurrent pneumonias, or emphysema. Call the doctor if you develop increasing fever, shortness of breath, chest pain, bloody sputum, or otherwise worsen. If you have not improved at all after several days, contact the physician. BRONCHITIS WITH BRONCHOSPASM (WHEEZING): You have bronchitis with bronchospasm (wheezing). Sometimes people develop wheezing with a chest cold. This occurs either because of an underlying tendency toward asthma or because the virus itself irritates the bronchial tubes. This irritation causes cough, shortness of breath, and wheezing. Emergency treatment of bronchospasm may include adrenaline shots or bronchodilator aerosol. You may feel lightheaded and have a rapid pulse for an hour or two. Rest and get plenty of fluids. At home, we'll treat you with a bronchodilator inhaler. Corticosteroids may be required for some patients. Until you recover, avoid chemical fumes, dusts, pollens, and exercising in very cold or dry air. If you smoke, stop now! Most cases of bronchitis get better without antibiotics. We prescribe antibiotics when we believe bacteria are damaging your airways, or if there's high risk the bronchitis will worsen into pneumonia. Increase your fluid intake. A cool mist humidifier may make your lungs more comfortable. An expectorant (cough medicine that loosens phlegm) can help. Repeated episodes of bronchitis and bronchospasm may result in lung damage -- for example, chronic bronchitis, recurrent pneumonias, or emphysema. If you develop a fever, increased wheezing, chest pain, or severe shortness of breath, you should contact the doctor immediately. INHALED BRONCHODILATORS: You have received a treatment of and/or prescription for an inhaled bronchodilator -- a medication which stimulates the airways in the lung to dilate. This improves the flow of air in asthma, bronchitis, and emphysema. These medicines have some similarity to adrenaline, and can cause similar side effects: shakiness, racing heart, and a sense of nervousness. These side effects decrease with time. Contact your doctor if these side effects are severe. Do not over-use the medicine. Too-frequent use of the inhaler may make it ineffective. Call your doctor if the inhaler is not controlling your symptoms at the prescribed doses. STEROID MEDICATION: You have been given an or oral medicine of the cortisone/steroid class. This medication is used to control inflammation or allergy. Kei t is usually only given for a short period of time, until the acute process subsides. There are usually no side effects from short-term use of cortisone-like medications. Some persons feel an increased sense of well-being and are not sleepy at bedtime. Long-term use of cortisone medications is best avoided, unless required for a severe condition. If your condition does not remit, or relapses after the course of corticosteroid medication, you should consult your physician. SMOKING: If you smoke, you should stop smoking. The tar and chemicals in cigarette smoke are harmful. Smoking has been shown to cause: emphysema chronic bronchitis lung cancer mouth and throat cancer stomach and pancreas cancer premature aging defects In addition, smoking increases ear and lung infections in children of smokers. FOLLOW-UP CARE: If you have been referred to a physician for follow-up care, call the physician s office for an appointment as you were instructed or within the next two days. If you experience worsening or a significant change in your symptoms, notify the physician immediately or return to the Emergency Department at any time for re-evaluation. Please return to the ER if you have worsening of your symptoms, recurrent fevers not responding to Tylenol, difficulty breathing, or feel that you are not improving after 3 days of treatment. please use the inhaler as 2 puffs every 4 hours for cough and wheezing. Prescriptions: Prednisone [Deltasone 20 mg Tablet] 3 tab PO DAILY 5 Days tablet
--- NOTE | 2017-04-04 03:05 | RADIOLOGY REPORT (SQ) ---
EXAM DESCRIPTION: CHEST PA/LAT COMPLETED DATE/TIME: 04/04/2017 2:53 am REASON FOR STUDY: cough, fever COMPARISON: 09/09/2016. EXAM PARAMETERS: NUMBER OF VIEWS: two views TECHNIQUE: Digital Frontal and Lateral radiographic views of the chest acquired. RADIATION DOSE: NA LIMITATIONS: none FINDINGS: LUNGS AND PLEURA: No opacities, masses or pneumothorax. No pleural effusion. MEDIASTINUM AND HILAR STRUCTURES: No masses or contour abnormalities. HEART AND VASCULAR STRUCTURES: Heart normal size. No evidence for failure. BONES: No acute findings. HARDWARE: None in the chest. OTHER: No other significant finding. IMPRESSION: NO SIGNIFICANT RADIOGRAPHIC FINDING IN THE CHEST. TECHNICAL DOCUMENTATION: JOB ID: [id number] [employer]- All Rights Reserved
[2017-04-04] MEDS ORDERED: ALBUTEROL SULFATE HFA (90 MCG/PUFF) 8 GM MDI (1 MDI/ER DISP) IH PRN (03:55)
[2017-04-04] MEDS ORDERED: ACETAMINOPHEN 325 MG TABLET PO ONE (03:55)
[2017-04-04 04:18] VITALS: BP 116/74
== END 2017-04-04 04:18 | disposition home or self-care (01) ==
LOC: ER 21:05
DX: J40 Bronchitis, not specified as acute or chronic (principal); R07.9 Chest pain, unspecified; M79.1 Myalgia; R50.9 Fever, unspecified; F17.200 Nicotine dependence, unspecified, uncomplicated
CPT/HCPCS: 94640; 99283; 71020; J3490 ×2; J7512

== ENCOUNTER 2017-05-31 03:54 | Emergency (ER) | payer MEDICAID ==
[2017-05-31] MEDS ORDERED: LIDOCAINE 2% INJ (20 MG/ML) 20 ML MDV INJ ONE (04:38)
[2017-05-31] MEDS ORDERED: CLINDAMYCIN HCL 150 MG CAPSULE PO ONE (04:38)
--- NOTE | 2017-05-31 04:47 | ER Document Report ---
ED General - General Chief Complaint: Other Stated Complaint: FINGER PAIN,TOOTHACHE Time Seen by Provider: 05/31/17 04:32 Notes: Patient is a 27-year-old female presents with complaint of tooth pain. She has pain over her right upper molar and premolar. She has had intermittent tooth pain for a long time. She has not recently seen a dentist. Her second complaint is of pain over her thumb. She says she is swelling over the lateral aspect of the nail recently. She looked it up and says that it appears to be paronychia based on when she looked up online. She denies any injuries to the thumb. No other complaints at this time. TRAVEL OUTSIDE OF THE [place] IN LAST 30 DAYS: No - Related Data Allergies/Adverse Reactions: hydroxychloroquine [From Plaquenil] Allergy (Verified 05/31/17 03:57) tramadol [From Ultram] Allergy (Verified 05/31/17 03:57) Past Medical History - Social History Smoking Status: Never Smoker Frequency of alcohol use: None Drug Abuse: None Family History: Reviewed & Not Pertinent Patient has suicidal ideation: No Patient has homicidal ideation: No - Past Medical History Cardiac Medical History: Denies: Hx Heart Attack, Hx Hypertension Pulmonary Medical History: Reports: Hx Asthma Denies: Hx Bronchitis, Hx COPD, Hx Pneumonia Neurological Medical History: Denies: Hx Seizures Endocrine Medical History: Renal/ Medical History: Reports: Hx Ovarian Cysts. Denies: Hx Peritoneal Dialysis Malignancy Medical History: GI Medical History: Reports: Hx Ulcerative Colitis Musculoskeltal Medical History: Reports Hx Arthritis Psychiatric Medical History: Past Surgical History: Reports: Hx Dilation and Curettage, Hx Gynecologic Surgery - d and c, Hx Tubal Ligation - Immunizations Immunizations up to date: Yes Hx Diphtheria, Pertussis, Tetanus Vaccination: Yes - 04/2015 Hx Pneumococcal Vaccination: 04/20/14 Review of Systems - Review of Systems Notes: My Normal Review Basic REVIEW OF SYSTEMS: CONSTITUTIONAL : Denies fever, chills, or sweats. Denies recent illness. EENT: Dental pain. RESPIRATORY: Denies cough, cold, or chest congestion. Denies shortness of breath, difficulty breathing, or wheezing. MUSCULOSKELETAL: Left thumb pain. SKIN: Denies rash or skin lesions. ALL OTHER SYSTEMS REVIEWED AND NEGATIVE. Physical Exam - Vital signs Vitals: Temp Pulse Resp BP Pulse Ox 97.5 F 92 14 117/63 100 05/31/17 04:00 05/31/17 04:00 05/31/17 04:00 05/31/17 04:00 05/31/17 04:00 - Notes Notes: General Appearance: Well nourished, alert, cooperative, no acute distress, mild obvious discomfort. Vitals: reviewed, See vital signs table. Eyes: PERRL, EOMI, Conjuctiva clear Mouth: Patient has multiple mild dental caries. No obvious gingival inflammation. Throat: No tonsillar inflammation, No airway obstruction, No lymphadenopathy Extremities: strength 5/5 in all extremities, good pulses in all extremities, patient has perionychial inflammation to the left thumb. No swelling or pain to the pad of the thumb., no edema. Skin: warm, dry, appropriate color, no rash Neuro: speech clear, oriented x 3, normal affect, responds appropriately to questions. Course - Re-evaluation Re-evalutation: 05/31/17 05:28 I performed incision and drainage of the paronychia of the patient's thumb. She tolerated procedure well. We were able to express some drainage from the thumb. Remainder thumb is normal-appearing. Patient does have some pain over her right upper molar and premolar. I do not see significant interval formation. She is appointment with her dentist on Friday. I strongly encouraged her return to ER immediately if she has fevers, vomiting, redness or swelling spreading down the thumb, facial swelling, or she feels unwell. Patient agrees with plan will be discharged home. Dictation of this chart was performed using voice recognition software; therefore, there may be some unintended grammatical errors. - Vital Signs Vital signs: Temp Pulse Resp BP Pulse Ox 97.5 F 92 14 117/63 100 05/31/17 04:00 05/31/17 04:00 05/31/17 04:00 05/31/17 04:00 05/31/17 04:00 Discharge - Discharge Clinical Impression: Pain, dental, Paronychia Condition: Good Disposition: HOME, SELF-CARE Instructions: Oral Narcotic Medication ([facility]) Additional Instructions: Please take the antibiotics as prescribed. Please dno not take the [place] when driving, at work, or operating machinery as it will make you sleepy and sometimes can make people confused. Please return to the ER immediately if you develop redness or swelling of the left thumb, fevers, facial swelling, or if you feel unwell. please follow up with your dentist on Friday as scheduled. Prescriptions: Clindamycin HCl 300 mg PO ASDIR #56 capsule
[2017-05-31] MEDS ORDERED: HYDROCODONE/ACETAMINOPHEN 5-325 MG 6 TAB/DSPK PO PRN (05:24)
[2017-05-31 06:05] VITALS: BP 109/64
== END 2017-05-31 05:51 | disposition home or self-care (01) ==
LOC: ER 03:54
DX: L03.012 Cellulitis of left finger (principal); K02.9 Dental caries, unspecified; K08.89 Other specified disorders of teeth and supporting structures; M79.645 Pain in left finger(s); J45.909 Unspecified asthma, uncomplicated; Z88.8 Allergy status to other drugs, medicaments and biological substances; Z88.5 Allergy status to narcotic agent
CPT/HCPCS: 99283; 10060; J3490 ×2

== ENCOUNTER 2017-06-02 10:47 | Emergency (ER) | payer MEDICAID ==
[2017-06-02 11:00] VITALS: BP 111/63
--- NOTE | 2017-06-02 11:25 | RADIOLOGY REPORT (SQ) ---
EXAM DESCRIPTION: HAND LEFT 3 VIEWS COMPLETED DATE/TIME: 06/02/2017 11:13 am REASON FOR STUDY: left thumb pain COMPARISON: None. EXAM PARAMETERS: NUMBER OF VIEWS: Three views. TECHNIQUE: AP, lateral and oblique radiographic images acquired of the left hand. LIMITATIONS: None. FINDINGS: MINERALIZATION: Normal. BONES: No acute fracture or dislocation. No worrisome bone lesions. JOINTS: No effusions. SOFT TISSUES: No soft tissue swelling. No foreign body. OTHER: No other significant finding. IMPRESSION: NEGATIVE STUDY OF THE LEFT HAND. NO RADIOGRAPHIC EVIDENCE OF ACUTE INJURY. TECHNICAL DOCUMENTATION: JOB ID: [id number] [employer]- All Rights Reserved
--- NOTE | 2017-06-02 11:45 | ER Document Report ---
HPI - HPI Pain Level: 5 Notes: Patient is a 19-year-old female presents ED complaining of recurrence of an abscess to the left thumb status post drainage 2 days ago while in the ED and placed on clindamycin. Patient states that she was diagnosed the paronychia and had an abscess drained. Patient states that she has had increased swelling and another abscess formation to the same area that was drained previously. She has not noticed any red streaks, or purulent discharge. No other concerns or complaints. Denies any headache, fever, URI, sore throat, chest pain, palpitations, syncope, cough, shortness of breath, wheeze, dyspnea, abdominal pain, nausea/vomiting/diarrhea. Denies MRSA hx. - ROS Notes: REVIEW OF SYSTEMS: CONSTITUTIONAL : Denies fever, chills, or sweats. Denies recent illness. EENT: Denies eye, ear, throat, or mouth pain or symptoms. Denies nasal or sinus congestion or discharge. Denies throat, tongue, or mouth swelling or difficulty swallowing. CARDIOVASCULAR: Denies chest pain. Denies palpitations or racing or irregular heart beat. Denies ankle edema. RESPIRATORY: Denies cough, cold, or chest congestion. Denies shortness of breath, difficulty breathing, or wheezing. GASTROINTESTINAL: Denies abdominal pain or distention. Denies nausea, vomiting , or diarrhea. Denies blood in vomitus, stools, or per rectum. Denies black, tarry stools. Denies constipation. GENITOURINARY: Denies difficulty urinating, painful urination, burning, frequency, blood in urine, or discharge. MUSCULOSKELETAL: see hpi SKIN: see hpi NEUROLOGICAL: Denies confusion or altered mental status. Denies passing out or loss of consciousness. Denies dizziness or lightheadedness. Denies headache. Denies weakness or paralysis or loss of use of either side. Denies problems with gait or speech. Denies sensory loss, numbness, or tingling. ALL OTHER SYSTEMS REVIEWED AND NEGATIVE. Dictation was performed using [employer] voice recognition software - REPRODUCTIVE LMP: 05/28/17 Reproductive: DENIES: : - DERM Skin Color: Normal Past Medical History - Social History Smoking Status: Unknown if Ever Smoked Family History: Reviewed & Not Pertinent Patient has suicidal ideation: No Patient has homicidal ideation: No - Past Medical History Cardiac Medical History: Denies: Hx Heart Attack, Hx Hypertension Pulmonary Medical History: Reports: Hx Asthma Denies: Hx Bronchitis, Hx COPD, Hx Pneumonia Neurological Medical History: Denies: Hx Seizures Endocrine Medical History: Renal/ Medical History: Reports: Hx Ovarian Cysts. Denies: Hx Peritoneal Dialysis Malignancy Medical History: GI Medical History: Reports: Hx Ulcerative Colitis Musculoskeltal Medical History: Reports Hx Arthritis Psychiatric Medical History: Past Surgical History: Reports: Hx Dilation and Curettage, Hx Gynecologic Surgery - d and c, Hx Tubal Ligation - Immunizations Immunizations up to date: Yes Hx Diphtheria, Pertussis, Tetanus Vaccination: Yes - 04/2015 Hx Pneumococcal Vaccination: 04/20/14 Vertical Provider Document - CONSTITUTIONAL Agree With Documented VS: Yes Notes: PHYSICAL EXAMINATION: GENERAL: Well-appearing, well-nourished and in no acute distress. LUNGS: Breath sounds clear to auscultation bilaterally and equal. No wheezes rales or rhonchi. HEART: Regular rate and rhythm without murmurs, rubs, gallops. Musculoskeletal: Lt thumb: FROM to passive/active. Strength 5+/5. Extremities: No cyanosis, clubbing, or edema b/l. Peripheral pulses 2+. Capillary refill less than 3 seconds. NEUROLOGICAL: Cranial nerves grossly intact. Normal speech, normal gait. Normal sensory, motor exams PSYCH: Normal mood, normal affect. SKIN: paronychia left thumb. no streaks, discharge. + abscess and tenderness. No felon. - INFECTION CONTROL TRAVEL OUTSIDE OF THE [place] IN LAST 30 DAYS: No - RESPIRATORY O2 Sat by Pulse Oximetry: 99 Course - Re-evaluation Re-evalutation: 06/02/17 11:42 Patient is an afebrile, well-hydrated, 19-year-old female who presents to the ED with a return of her paronychia to left thumb. Vitals are stable. PE is otherwise unremarkable for any neurovascular compromise, obvious tendon/ ligament rupture, obvious fracture or dislocation, or felon. XR unremarkable for acute pathology. Patient is aware that condition can change and she needs to monitor symptoms for any acute changes and seek medical attention if so. Incision and drainage was performed today successfully without any complications. Wound culture was obtained. Patient to continue clindamycin as directed. Conservative measures for symptoms otherwise. Recheck with your PCM in 3-5 days. Return to the ED with any worsening/concerning symptoms otherwise as reviewed in discharge. Patient is in agreement. - Vital Signs Vital signs: Temp Pulse Resp BP Pulse Ox 97.4 F 88 16 111/63 99 06/02/17 10:58 06/02/17 10:58 06/02/17 10:58 06/02/17 10:58 06/02/17 10:58 Procedures - Incision and Drainage Left Thumb Time completed: 11:40 Type: Simple Blade size: 11 I&D procedure: Sterile dressing applied, Other - iodine, etoh pads Incision Method: Incision made by scalpel Amount/type of drainage: 1cc purulent Notes: 06/02/17 11:44 pt tolerated procedure well, no complications Discharge - Discharge Clinical Impression: Paronychia Condition: Stable Disposition: HOME, SELF-CARE Instructions: Paronychia ([facility]), Clindamycin ([facility]) Additional Instructions: Keep the hands clean Wash with soap and water Epson salt soaks may help Use bacitracin as directed Monitor for any worsening symptoms or signs of infection Recheck with your PCM in 3-5 days Return to the ED with any worsening symptoms and/or development of fever, headache, chest pain, palpitations, syncope, shortness of breath, trouble breathing, abdominal pain, n/v/d, muscle weakness/paralysis, numbness/tingling, abscess, red streaks, or other worsening symptoms that are concerning to you. Referrals: [facility] [Provider Group] - Follow up as needed [facility] [Provider Group] - Follow up as needed
[2017-06-02] MEDS ORDERED: HYDROCODONE/ACETAMINOPHEN 5-325 MG TABLET PO ONE (11:47)
== END 2017-06-02 12:01 | disposition home or self-care (01) ==
LOC: ER 10:47
PROC: 0H9GXZZ Drainage of Left Hand Skin, External Approach (ICD-10-PCS; principal; 2017-06-02)
DX: L03.012 Cellulitis of left finger (principal); Z98.51 Tubal ligation status
CPT/HCPCS: 87070; 87075; 87077; 87205; 99283

== ENCOUNTER 2017-07-08 15:52 | Emergency (ER) | payer MEDICAID ==
[2017-07-08] MEDS ORDERED: DEXAMETHASONE SOD PHOS INJ 10 MG/1 ML VIAL IM ONE (16:31)
--- NOTE | 2017-07-08 16:38 | ER Document Report ---
ED General - General Chief Complaint: Sore Throat Stated Complaint: SORE THROAT, HEADACHE, EAR PAIN Time Seen by Provider: 07/08/17 16:22 Mode of Arrival: Ambulatory Information source: Patient Notes: Patient is a 27-year-old black female comes emergency room with onset of sore throat starting on Friday. Patient states this started on the right side of her throat and has progressed to the left side as well. She states that is getting worse. She also complains of having a headache. She denies any fever throughout this ordeal. She was taken Tylenol this morning for discomfort. Patient states she only has a history of lupus has not been on any steroids since May. She does continue to smoke half pack cigarettes a day. She denies any known sick contacts. TRAVEL OUTSIDE OF THE [place] IN LAST 30 DAYS: No - HPI Patient complains to provider of: Sore throat Onset: Other - 4 days Onset/Duration: Sudden, Constant, Worse Quality of pain: Achy, Sharp Severity: Moderate Pain Level: 2 Associated symptoms: Chills, Earache, Headache, Hoarseness, Sore throat Exacerbated by: Other - Swallowing Relieved by: Other - Elevation Similar symptoms previously: No Recently seen / treated by doctor: No - Related Data Allergies/Adverse Reactions: hydroxychloroquine [From Plaquenil] Allergy (Verified 07/08/17 15:53) tramadol [From Ultram] Allergy (Verified 07/08/17 15:53) Past Medical History - General Information source: Patient Last Menstrual Period: June - Social History Smoking Status: Current Every Day Smoker Cigarette use (# per day): Yes - Half-pack series today Chew tobacco use (# tins/day): No Smoking Education Provided: Yes Frequency of alcohol use: Social Drug Abuse: None Lives with: Family Family History: Reviewed & Not Pertinent - Past Medical History Cardiac Medical History: Denies: Hx Heart Attack, Hx Hypertension Pulmonary Medical History: Reports: Hx Asthma Denies: Hx Bronchitis, Hx COPD, Hx Pneumonia Neurological Medical History: Denies: Hx Seizures Endocrine Medical History: Renal/ Medical History: Reports: Hx Ovarian Cysts. Denies: Hx Peritoneal Dialysis Malignancy Medical History: GI Medical History: Reports: Hx Ulcerative Colitis Musculoskeltal Medical History: Reports Hx Arthritis Psychiatric Medical History: Past Surgical History: Reports: Hx Dilation and Curettage, Hx Gynecologic Surgery - d and c, Hx Tubal Ligation - Immunizations Immunizations up to date: Yes Hx Diphtheria, Pertussis, Tetanus Vaccination: Yes - 04/2015 Hx Pneumococcal Vaccination: 04/20/14 Review of Systems - Review of Systems Constitutional: Chills, Malaise EENT: Ear pain, Nose congestion, Throat pain, Difficulty swallowing Cardiovascular: No symptoms reported Respiratory: No symptoms reported Gastrointestinal: No symptoms reported Genitourinary: No symptoms reported Musculoskeletal: No symptoms reported Skin: No symptoms reported Hematologic/Lymphatic: No symptoms reported Neurological/Psychological: No symptoms reported -: Yes All other systems reviewed and negative Physical Exam - Vital signs Vitals: Temp Pulse Resp BP Pulse Ox 98.3 F 90 16 121/66 99 07/08/17 16:07 07/08/17 16:07 07/08/17 16:07 07/08/17 16:07 07/08/17 16:07 Interpretation: Normal - General General appearance: Alert, Other - Appears ill/uncomfortable - HEENT Head: Normocephalic, Atraumatic Eyes: Normal Tympanic membrane: Bulging. No: Normal, Hemotympanum, Injected, Loss of landmarks, Perforation, Purulent effusion, Retracted, Serous effusion, Other Sinus: Normal Nasal: Normal Mouth/Lips: Normal Mucous membranes: Moist Pharynx: Erythema, Exudate, Other - Physical examination patient's posterior pharynx shows bilateral tonsillar enlargement with moderate exudate mason color. Right side appears larger than the left. Even though patient has difficulty swallowing there is no encroachment upon the uvula there is no sign of obstruction. Patient has been able to handle her secretions without a problem. Neck: Anterior cervical chain, Lymphadenopathy - Respiratory Respiratory status: No respiratory distress Chest status: Nontender Breath sounds: Normal. No: Decreased air movement, Nonproductive cough, Productive cough, Rales, Rhonchi, Stridor, Wheezing, Other - Neurological Neuro grossly intact: Yes Cognition: Normal Orientation: AAOx4 Bria Coma Scale Verbal: Oriented [place] Coma Scale Motor: Obeys Commands Speech: Normal Cranial nerves: Normal Course - Vital Signs Vital signs: Temp Pulse Resp BP Pulse Ox 98.3 F 90 16 121/66 99 07/08/17 16:07 07/08/17 16:07 07/08/17 16:07 07/08/17 16:07 07/08/17 16:07 - Transfer of Care Notes: 07/08/17 18:32 Given the patient's strep and mono were negative representation of a major pharyngitis is still prevalent. Discussed with patient that I would put her on an antibiotic and steroids. Again reexamining the posterior pharynx the right tonsil slightly larger than the left but both mother not large at all the right side may be 3 cm long and to why it may be the patient is a large posterior pharynx and there is no airway obstruction and no apparent possibility of airway obstruction. It is very erythematous with the exudate as stated. So we will place her on the Augmentin and the steroid pack give her a little Coggon elixir and she is to follow-up in 24 hours. Discharge - Discharge Clinical Impression: Pharyngitis Qualifiers: Pharyngitis/tonsillitis etiology: unspecified etiology Qualified Code(s): J02.9 - Acute pharyngitis, unspecified Condition: Good Disposition: HOME, SELF-CARE Instructions: Oral Narcotic Medication ([facility]), Sore Throat ([facility]) Additional Instructions: Pharyngitis is the diagnosis for place you on Augmentin and steroid. Use warm salt water swishes 3 4 times a day. Tylenol alternating Motrin for aches and pains. The pain medication to help with the discomfort. Want to see you back in ER in 24-48 hrs. for recheck or sooner if it is getting worse. Prescriptions: Amoxicillin/Potassium Clav [Augmentin 875-125 Tablet] 1 each PO BID #20 tablet Hydrocodone/Acetaminophen [Hydrocodone-Acetamn 7.5-325/15] 5 ml PO Q4 PRN #180 ml PRN Reason: Prednisone [Sterapred Ds] 1 pkg PO ASDIR PRN 6 Days #1 tab.ds.pk PRN Reason: Forms: Smoking Cessation Education, Elevated Blood Pressure
[2017-07-08 18:58] VITALS: BP 111/69
== END 2017-07-08 18:58 | disposition home or self-care (01) ==
LOC: ER 15:52
DX: J02.9 Acute pharyngitis, unspecified (principal); R51 Headache; H92.03 Otalgia, bilateral; R53.81 Other malaise; F17.210 Nicotine dependence, cigarettes, uncomplicated
CPT/HCPCS: 99283; 96372; 36415; 87070; 87880; 87077; 86308; J1100

== ENCOUNTER 2017-08-05 17:45 | Emergency (ER) | payer MEDICAID ==
[2017-08-05] MEDS ORDERED: LORATADINE 10 MG TABLET PO ONE (18:31)
[2017-08-05] MEDS ORDERED: GUAIFENESIN 600 MG TABLET.SA PO ONE (18:31)
[2017-08-05] MEDS ORDERED: PSEUDOEPHEDRINE HCL 30 MG TABLET PO ONE (18:31)
[2017-08-05] MEDS ORDERED: IBUPROFEN 600 MG TABLET PO ONE (18:31)
[2017-08-05] MEDS ORDERED: PENICILLIN V POTASSIUM 500 MG TABLET PO ONE (18:31)
[2017-08-05] MEDS ORDERED: LIDOCAINE 2% VISCOUS SOLN 20 ML UDCUP PO ONE (18:39)
--- NOTE | 2017-08-05 18:43 | ER Document Report ---
ED ENT - General Chief Complaint: Toothache Stated Complaint: TOOTHACHE/HEADACHE Time Seen by Provider: 08/05/17 18:19 Mode of Arrival: Ambulatory Information source: Patient Notes: 27-year-old female presents to ED for cough cold congestion headache and dental pain on the right side of her mouth she says she also has some on the left side of her mouth states is not a specific tooth but it is her gums more than anything. She states she had a dental appointment when that was noted and she had to cancel it and had another appointment on Friday. TRAVEL OUTSIDE OF THE [place] IN LAST 30 DAYS: No - HPI Patient complains to provider of: Dental problem, Nose problem, Other - Headache Onset: Other - Dental pain for a good while fluid and cold symptoms for about a month Onset/Duration: Intermittent Quality of pain: Achy, Other - Throbbing Severity: Severe Pain Level: 5 Context: Injury, Recent Illness, Other - Chronic dental problems Location of pain: Nose, Sinus, Tooth Associated symptoms: Dental pain, Dental caries, Headache, Runny nose, Sinus pain, Sinus drainage Similar symptoms previously: Yes Recently seen / treated by doctor: No - Related Data Allergies/Adverse Reactions: hydroxychloroquine [From Plaquenil] Allergy (Verified 08/05/17 18:31) tramadol [From Ultram] Allergy (Verified 08/05/17 18:31) Past Medical History - General Information source: Patient - Social History Smoking Status: Current Every Day Smoker Cigarette use (# per day): Yes - 1/2 ppd Chew tobacco use (# tins/day): No Smoking Education Provided: Yes - 4 min Frequency of alcohol use: Social Drug Abuse: None Lives with: Spouse/Significant other - and children Family History: Reviewed & Not Pertinent Patient has suicidal ideation: No Patient has homicidal ideation: No - Past Medical History Cardiac Medical History: Reports: None Pulmonary Medical History: Reports: Hx Asthma EENT Medical History: Reports: None Neurological Medical History: Reports: None Endocrine Medical History: Reports: None Renal/ Medical History: Reports: Hx Ovarian Cysts Malignancy Medical History: Reports: None GI Medical History: Reports: Hx Ulcerative Colitis Musculoskeltal Medical History: Reports Hx Arthritis, Reports Other - lupus Skin Medical History: Reports None Psychiatric Medical History: Reports: None Traumatic Medical History: Reports: None Infectious Medical History: Reports: None Past Surgical History: Reports: Hx Dilation and Curettage, Hx Tubal Ligation - Immunizations Immunizations up to date: Yes Hx Diphtheria, Pertussis, Tetanus Vaccination: Yes - 04/2015 Hx Pneumococcal Vaccination: 04/20/14 Review of Systems - Review of Systems Constitutional: Recent illness EENT: Nose congestion, Nose discharge, Sinus pressure, Sinus discharge, Mouth pain, Dental problem Cardiovascular: No symptoms reported Respiratory: No symptoms reported Gastrointestinal: No symptoms reported Genitourinary: No symptoms reported Female Genitourinary: No symptoms reported Musculoskeletal: No symptoms reported Skin: No symptoms reported Hematologic/Lymphatic: No symptoms reported Neurological/Psychological: Headaches -: Yes All other systems reviewed and negative Physical Exam - Vital signs Vitals: Temp Pulse Resp BP Pulse Ox 98.2 F 76 18 107/67 100 08/05/17 17:52 08/05/17 17:52 08/05/17 17:52 08/05/17 17:52 08/05/17 17:52 Interpretation: Normal - General General appearance: Appears well, Alert - HEENT Head: Normocephalic, Atraumatic Eyes: Normal Pupils: PERRL Ears: Normal External canal: Normal Tympanic membrane: Normal Sinus: Normal Nasal: Purulent discharge, Swelling Mouth/Lips: Caries Mucous membranes: Normal Teeth diagram: 1 - Multiple cavities upper and lower right and left. Gingivitis. Patient states the worst pain is on the right upper jaw but all of her teeth hurt. Pharynx: Post nasal drainage Neck: Normal - Respiratory Respiratory status: No respiratory distress Chest status: Nontender Breath sounds: Normal Chest palpation: Normal - Cardiovascular Rhythm: Regular Heart sounds: Normal auscultation Murmur: No - Abdominal Inspection: Normal Distension: No distension Bowel sounds: Normal Tenderness: Nontender Organomegaly: No organomegaly - Back Back: Normal, Nontender - Extremities General upper extremity: Normal inspection, Nontender, Normal color, Normal ROM , Normal temperature General lower extremity: Normal inspection, Nontender, Normal color, Normal ROM , Normal temperature, Normal weight bearing. No: Jean's sign - Neurological Neuro grossly intact: Yes Cognition: Normal Orientation: AAOx4 [place] Coma Scale Eye Opening: Spontaneous [place] Coma Scale Verbal: Oriented [place] Coma Scale Motor: Obeys Commands Bria Coma Scale Total: 15 Speech: Normal Motor strength normal: LUE, RUE, LLE, RLE Sensory: Normal - Psychological Associated symptoms: Normal affect, Normal mood - Skin Skin Temperature: Warm Skin Moisture: Dry Skin Color: Normal Course - Re-evaluation Re-evalutation: 08/05/17 18:52 Assessment consistent with a upper respiratory infection and dental gingivitis. Patient has a dental appointment on Friday. Will treat with cough and cold medicine viscous lidocaine and penicillin. Patient will be discharged home. - Vital Signs Vital signs: Temp Pulse Resp BP Pulse Ox 98.9 F 94 18 102/95 H 99 08/05/17 19:17 08/05/17 19:17 08/05/17 17:52 08/05/17 19:17 08/05/17 19:17 Discharge - Discharge Clinical Impression: Pain due to dental caries URI (upper respiratory infection) Qualifiers: URI type: unspecified URI Qualified Code(s): J06.9 - Acute upper respiratory infection, unspecified Condition: Stable Disposition: HOME, SELF-CARE Additional Instructions: UPPER RESPIRATORY ILLNESS: You have a viral infection of the respiratory passages -- a "cold." This common infection causes nasal congestion, drainage, and often sore throat and cough. It is highly contagious. The disease usually lasts about 10 to 14 days. There is no "cure" for the viral infection -- it must run its course. If there is a complication, such as bacterial infection in the nose, sinuses, middle ear, or bronchial tubes, antibiotics may be required. The antibiotics won't affect the virus. Drink plenty of fluids. A humidifier may help. An expectorant medication or decongestant may make you more comfortable. Use acetaminophen or ibuprofen for fever or aches. See the doctor if fever persists over two days, if there is any significant worsening of your symptoms, or if you simply fail to improve as expected. You will treated with Claritin and Sudafed Mucinex and ibuprofen for your cough and cold body aches. He was treated with penicillin and viscous lidocaine for your dental pain. Discharged home with a penicillin prescription the rest of the medicines were [id number] except for the viscous lidocaine and he was sent home with that. USE OF ACETAMINOPHEN (Tylenol): Acetaminophen may be taken for pain relief or fever control. It's much safer than aspirin, offering a wider range of "safe" dosages. It is safe during . Some brand names are Tylenol, Panadol, Datril, Anacin 3, Tempra, and Liquiprin. Acetaminophen can be repeated every four hours. The following are maximum recommended dosages: >89 pounds or adults 650 mg to 900 mg Acetaminophen can be repeated every four hours. Maximum dose not to exceed 4000 mg a day. SMOKING: If you smoke, you should stop smoking. The tar and chemicals in cigarette smoke are harmful. Smoking has been shown to cause: emphysema chronic bronchitis lung cancer mouth and throat cancer stomach and pancreas cancer premature aging defects In addition, smoking increases ear and lung infections in children of smokers. TOOTHACHE: Your pain is due to dental decay. The tooth must be repaired in order for you to feel better. You will, therefore, be referred to a dentist. We do not have dentists on the staff at [facility]. Severe swelling or drainage around a tooth usually means a dental abscess. This also requires evaluation and treatment by the dentist, but antibiotics may be prescribed while awaiting dental treatment. You should be rechecked immediately if you develop major swelling of the face, increasing pain, a lump in the jaw or gums, headache, difficulty swallowing, or fever. PENICILLIN V K: You have been given a prescription for Penicillin VK. Your physician has determined that this is the best antibiotic for your condition. Pen VK can be taken with meals, however more of the antibiotic gets into the bloodstream if it's taken on an empty stomach. Penicillin usually has no side effects. However, allergy to penicillins is common. If you have had an allergic reaction to any drug of the penicillin family, you should never take any other penicillin. Notify your doctor at once if you develop hives, itching, swelling, faintness, or shortness of breath. FOLLOW-UP CARE: You have been referred for follow-up care to the dentists listed below. Call the dentists office for an appointment as you were instructed or within the next two days. If you experience worsening or a significant change in your symptoms, notify the physician immediately or return to the Emergency Department at any time for re-evaluation. [facility] [address] [phone] [facility] [address] [place] [address] [facility] [address] [facility] [address] [facility] [address] [facility] [email or web address] [address] [place] [address] ([phone] Friday- 8:00am to 5:00 pm Will see patients from other [facility]. Charges based on income and family size and accepts Medicare, Medicaid, and Insurances Will pull molars [facility] [address] Hours of Operation 8:00 am - 4:30 pm weekdays The following dental offices accept Medicaid: [facility] Dr. Naik Dr. Benz Dr. Aguilar Dr. Grullon Nayan Mario, Nino, and Rupa oral surgery Dr. Chan ([place]) Dr. Duran ([place]) [facility] Drs. Valadez and Jeffrey ([place]) Dr. Aguilera ([place]) [facility] Dr. Titus ([place]) Drs. Shanks and ([place]) Medicaid Care Line Prescriptions: Penicillin V Potassium [Penicillin Vk 500 mg Tablet] 500 mg PO BID #20 tablet
[2017-08-05 19:18] VITALS: BP 102/95
== END 2017-08-05 19:18 | disposition home or self-care (01) ==
LOC: ER 17:45
DX: J06.9 Acute upper respiratory infection, unspecified (principal); K08.9 Disorder of teeth and supporting structures, unspecified; R51 Headache; F17.210 Nicotine dependence, cigarettes, uncomplicated; Z98.51 Tubal ligation status
CPT/HCPCS: 99406; 99282; J3490 ×5

== ENCOUNTER 2019-01-25 20:56 | Emergency (ER) | payer SELFPAY ==
[2019-01-25 22:29] LABS: HEMATOCRIT 45.5 % (36.0-47.0); HEMOGLOBIN 15.4 g/dL (12.0-15.5); MEAN CORPUSCULAR HEMOGLOBIN 29.8 pg (27.0-33.4); MEAN CORPUSCULAR HGB CONC 33.9 g/dL (32.0-36.0); MEAN CORPUSCULAR VOLUME 88 fl (80-97); PLATELET COUNT 278 10^3/uL (150-450); RED BLOOD COUNT 5.17 10^6/uL (3.72-5.28); RED CELL DISTRIBUTION WIDTH 13.9 % (11.5-14.0); WHITE BLOOD COUNT 13.7 10^3/uL (4.0-10.5)
[2019-01-25 22:30] LABS: AMORPHOUS SEDIMENT,URINE TRACE /HPF; APPEARANCE,URINE HAZY; BILIRUBIN,URINE NEGATIVE (NEGATIVE); COLOR,URINE YELLOW; GLUCOSE, URINE NEGATIVE (NEGATIVE); KETONES,URINE 300 mg/dL (NEGATIVE); LEUKOCYTE ESTERASE,URINE NEGATIVE (NEGATIVE); NITRITE,URINE NEGATIVE (NEGATIVE); PROTEIN,URINE >=500 mg/dL (NEGATIVE); UROBILINOGEN,URINE NEGATIVE mg/dL (<2.0)
[2019-01-25 22:31] LABS: URINE SPECIFIC GRAVITY 1.031
[2019-01-25 22:45] LABS: ALANINE AMINOTRANSFERASE 17 U/L (9-52); ALBUMIN 4.9 g/dL (3.5-5.0); ALKALINE PHOSPHATASE 128 U/L (38-126); ANION GAP 19 (5-19); ASPARTATE AMINO TRANSFERASE 18 U/L (14-36); BILIRUBIN,DIRECT 0.3 mg/dL (0.0-0.4); BILIRUBIN,TOTAL 0.6 mg/dL (0.2-1.3); BLOOD UREA NITROGEN 12 mg/dL (7-20); CALCIUM 10.1 mg/dL (8.4-10.2); CARBON DIOXIDE 20 mmol/L (22-30); CHLORIDE 104 mmol/L (98-107); GLUCOSE 128 mg/dL (75-110); POTASSIUM 4.2 mmol/L (3.6-5.0); TOTAL PROTEIN 8.3 g/dL (6.3-8.2)
[2019-01-25] MEDS ORDERED: DICYCLOMINE HCL INJ 20 MG/2 ML AMPULE IM ONE (22:46)
[2019-01-25] MEDS ORDERED: NORMAL SALINE 1000 ML 1,000 ML IV PRN (22:46)
[2019-01-25] MEDS ORDERED: PROMETHAZINE HCL INJ 25 MG/1 ML VIAL IM ONE (22:46)
[2019-01-25 23:00] LABS: ABSOLUTE LYMPHOCYTES# (MANUAL) 0.3 10^3/uL (0.5-4.7); ABSOLUTE MONOCYTES # (MANUAL) 0.1 10^3/uL (0.1-1.4); BAND NEUTROPHILS % (MANUAL) 2 % (3-5); BASOPHILS % (MANUAL) 0 % (0-2); EOSINOPHILS % (MANUAL) 0 % (0-6); LYMPHOCYTES % (MANUAL) 2 % (13-45); MONOCYTES % (MANUAL) 1 % (3-13); PLATELET COMMENT ADEQUATE; RBC MORPHOLOGY COMMENT NORMO-CYTIC/CHROMIC; SEGMENTED NEUTROPHILS % (MAN) 95 % (42-78); TOTAL CELLS COUNTED 100
[2019-01-26] MEDS ORDERED: HALOPERIDOL LACTATE INJ 5 MG/1 ML VIAL IM ONE (00:11)
--- NOTE | 2019-01-26 02:36 | RADIOLOGY REPORT (SQ) ---
CLINICAL HISTORY: abdominal pain COMPARISON: None. TECHNIQUE: CT ABDOMEN PELVIS WITHOUT IV CONTRAST on 01/26/2019 1:54 AM CDT This exam was performed according to our departmental dose-optimization program, which includes automated exposure control, adjustment of the mA and/or kV according to patient size and/or use of iterative reconstruction technique. FINDINGS: Lower lungs are clear. Abdomen: There is a tiny right hepatic lobe cyst. There is no biliary dilatation. Gallbladder is normal in appearance. The pancreas and spleen are normal in appearance. The adrenal glands and kidneys are unremarkable. Abdominal aorta is normal in course and caliber without aneurysm. There is no free air. There is no retroperitoneal adenopathy. Pelvis: There is no bowel obstruction. Urinary bladder is unremarkable. There is no free fluid. Uterus is normal in size. Appendix is not well seen. Skeleton: There are no acute osseous findings. No suspicious bony lesions. IMPRESSION: No definite acute inflammatory process.
--- NOTE | 2019-01-26 02:54 | ER Document Report ---
ED General - General Chief Complaint: Abdominal Pain Stated Complaint: VOMITING Time Seen by Provider: 01/25/19 22:09 Notes: Patient is a 28-year-old female presents with complaint of abdominal cramping and nausea vomiting. No diarrhea. Symptoms mainly started as patient was being processed that she will after being arrested. She denies any pain or symptoms yesterday. She denies any fevers. She says she has a history of ulcerative colitis status and is supposed to follow-up with a GI doctor but has not done as of yet. No blood in her stool. No other complaints at this time. TRAVEL OUTSIDE OF THE [place] IN LAST 30 DAYS: No - Related Data Allergies/Adverse Reactions: hydroxychloroquine [From Plaquenil] Allergy (Verified 08/05/17 18:31) tramadol [From Ultram] Allergy (Verified 08/05/17 18:31) Past Medical History - Social History Smoking Status: Current Every Day Smoker Chew tobacco use (# tins/day): No Frequency of alcohol use: None Drug Abuse: None Family History: Reviewed & Not Pertinent Patient has suicidal ideation: No Patient has homicidal ideation: No - Past Medical History Cardiac Medical History: Denies: Hx Heart Attack, Hx Hypertension Pulmonary Medical History: Reports: Hx Asthma Denies: Hx Bronchitis, Hx COPD, Hx Pneumonia Neurological Medical History: Denies: Hx Seizures Endocrine Medical History: Renal/ Medical History: Reports: Hx Ovarian Cysts. Denies: Hx Peritoneal Dialysis Malignancy Medical History: GI Medical History: Reports: Hx Ulcerative Colitis Musculoskeletal Medical History: Reports Hx Arthritis Psychiatric Medical History: Past Surgical History: Reports: Hx Dilation and Curettage, Hx Gynecologic Surg rosario - d and c, Hx Tubal Ligation - Immunizations Immunizations up to date: Yes Hx Diphtheria, Pertussis, Tetanus Vaccination: Yes - 04/2015 Hx Pneumococcal Vaccination: 04/20/14 Review of Systems - Review of Systems Notes: My Normal Review Basic REVIEW OF SYSTEMS: CONSTITUTIONAL : Denies fever, chills, or sweats. Denies recent illness. RESPIRATORY: Denies cough, cold, or chest congestion. Denies shortness of breath, difficulty breathing, or wheezing. GASTROINTESTINAL: Has abdominal pain. Nausea and vomiting GENITOURINARY: Denies difficulty urinating, painful urination, burning, frequency, or blood in urine. MUSCULOSKELETAL: Denies neck or back pain or joint pain or swelling. SKIN: Denies rash or skin lesions. NEUROLOGICAL: Denies altered mental status or loss of consciousness. Denies headache. Denies weakness or paralysis or loss of use of either side. Denies problems with gait or speech. Denies sensory or motor loss. ALL OTHER SYSTEMS REVIEWED AND NEGATIVE. Physical Exam - Vital signs Vitals: Temp Pulse Resp BP Pulse Ox 98.4 F 92 15 133/108 H 100 01/25/19 21:06 01/25/19 21:06 01/25/19 21:06 01/25/19 21:06 01/25/19 21:06 - Notes Notes: General Appearance: Well nourished, alert, cooperative, no acute distress. Patient is holding a emesis bag and forcefully trying to vomit into it. She says that she is been vomiting a lot and she has 3 emesis bags that she says have emesis and then. Each emesis bag has a small amount of gastric acid at the bottom of the bag. There is no blood seen in the bag. Vitals: reviewed, See vital signs table. Eyes: PERRL, EOMI, Conjuctiva clear Mouth: No decreasd moisture Throat: No tonsillar inflammation, No airway obstruction, No lymphadenopathy Neck: Supple, no neck tenderness, No thyromegaly Lungs: No wheezing, No rales, No rhonci, No accessory muscle use, good air exchange bilaterally. Heart: Normal rate, Regular rythm, No murmur, no rub Abdomen: Normal BS, soft, No rigidity, mild diffuse abdominal tenderness to palpation., No guarding, no rebound, no abdominal masses, no organomegaly Extremities: good pulses in all extremities, no swelling or tenderness in the extremities, no edema. Skin: warm, dry, appropriate color, no rash Neuro: speech clear, oriented x 3, normal affect, responds appropriately to questions. Course - Re-evaluation Re-evalutation: 01/26/19 04:44 Patient is well-appearing. The Phenergan the patient says that she was still nauseous and vomiting even though she was not actually able to bring up anything. She was dry heaving and actively trying to force herself to vomit into a bag. I felt that there was some sort of possible anxiety component of her cyclic vomiting component being that the symptoms all started when she was being processed for rest. They therefore gave her a dose of Haldol. I than watched patient for little while longer. Patient has not had any further vomiting. She looks well. Vital signs are normal. CT scan of her abdomen does not show any inflammation around the bowel or bowel wall thickening that would be concerning for inflammatory bowel disease. Her CBC just shows a mild leukocytosis but is otherwise normal. At this time I feel the patient safe to be discharged home. Her vital signs are normal. Mucous membranes are moist. I do not feel that she needs further IV fluids at this time. She is not longer vomiting. Patient be discharged back to police custody with prescriptions for Bentyl and Phenergan. She is encouraged to return to ER if she has intractable vomiting, fevers, worsening pain, or if she has further concerns. Dictation of this chart was performed using voice recognition software; therefore, there may be some unintended grammatical errors. - Vital Signs Vital signs: Temp Pulse Resp BP Pulse Ox 99.4 F 89 16 134/87 H 100 01/26/19 03:08 01/26/19 03:08 01/26/19 03:08 01/26/19 03:08 01/26/19 03:08 - Laboratory Result Diagrams: 01/25/19 22:08 01/25/19 22:08 Laboratory results interpreted by me: 01/25/19 01/25/19 01/25/19 22:08 22:08 22:08 WBC 13.7 H Seg Neuts % (Manual) 95 H Band Neutrophils % 2 L Lymphocytes % (Manual) 2 L Monocytes % (Manual) 1 L Abs Neuts (Manual) 13.3 H Abs Lymphs (Manual) 0.3 L Carbon Dioxide 20 L Glucose 128 H Alkaline Phosphatase 128 H Total Protein 8.3 H Urine Protein >=500 H Urine Ketones 300 H Urine Blood LARGE H Urine Ascorbic Acid 40 H Discharge - Discharge Clinical Impression: Abdominal pain, Vomiting Condition: Good Disposition: HOME, SELF-CARE Additional Instructions: Please take medications as prescribed. Please return to ER if you have fevers, intractable vomiting, or if you feel like you are worsening. Please follow-up with your doctor in 2 to 3 days for reevaluation. Your laboratory evaluation did not show any concerning findings. CT scan did not show any evidence of inflammation of the bowel. Prescriptions: Dicyclomine HCl [Bentyl 10 mg Capsule] 1 cap PO TID #20 cap Promethazine HCl [Phenergan 25 mg Tablet] 1 tab PO Q6H PRN #15 tablet PRN Reason:
[2019-01-26 03:13] VITALS: BP 134/87
== END 2019-01-26 03:18 | disposition home or self-care (01) ==
LOC: ER 20:56
DX: R10.9 Unspecified abdominal pain (principal); R11.2 Nausea with vomiting, unspecified; R10.817 Generalized abdominal tenderness; J45.909 Unspecified asthma, uncomplicated; D72.829 Elevated white blood cell count, unspecified; F17.200 Nicotine dependence, unspecified, uncomplicated; Z87.19 Personal history of other diseases of the digestive system; Z88.8 Allergy status to other drugs, medicaments and biological substances; Z88.5 Allergy status to narcotic agent
CPT/HCPCS: 99284; 96361; 96374; 96375; 36415; 85025; 81025; 80053; 81001; 74176; J0500; J1630; J2550; J7030